=== PATIENT | female | born 1990 | race Two or more races ===

== ENCOUNTER 2017-07-16 05:55 | Emergency (ER) | payer OTHER ==
[~2017-07-16] VITALS: Ht 162.6 cm; Wt 89.6 kg
[2017-07-16] MEDS ORDERED: FAMOTIDINE 20 MG/2 ML ONE (06:26)
[2017-07-16] MEDS ORDERED: ONDANSETRON 2MG/ML, 2ML ONE (06:26)
[2017-07-16] MEDS ORDERED: BCP (06:27)
[2017-07-16] MEDS ORDERED: ONDANSETRON 2MG/ML, 2ML IVPush ONE (06:30)
[2017-07-16] MEDS ORDERED: SODIUM CHLORIDE 0.9% 1,000ML IVBOLUS ONE (06:30)
[2017-07-16] MEDS ORDERED: FAMOTIDINE 20 MG/2 ML IVP ONE (06:30)
[2017-07-16] MEDS ORDERED: SODIUM CHLORIDE FLUSH 10ML SYR IVF ONE (06:30)
[2017-07-16 06:45] LABS: HEMATOCRIT 46.2 % (34.6-47.8); HEMOGLOBIN 15.7 g/dL (11.7-16.4); WHITE BLOOD COUNT 14.4 x10^3/uL (3.4-10)
[2017-07-16 06:57] LABS: ASPARTATE AMINO TRANSFERASE 16 U/L (15-37); BLOOD UREA NITROGEN 14 mg/dL (7-18)
[2017-07-16 09:00] VITALS: BP 135/78
== END 2017-07-16 09:03 | disposition home or self-care (01) ==
LOC: ED 06:27
DX: K52.9 Noninfective gastroenteritis and colitis, unspecified (principal)
CPT/HCPCS: 36415; 76700; 80053; 81001; 83690; 84703; 85025; 96361; 96374; 96375; 99285; J2405; J7030; S0028

== ENCOUNTER 2019-12-31 06:31 | Emergency (ER) | payer BC, OTHER ==
[~2019-12-31] VITALS: Ht 162.6 cm; Wt 105.6 kg
[~2019-12-31 06:31] MED LIST: BCP
--- NOTE | 2019-12-31 07:23 | NUR ---
REGISTERED NURSE BONE MARROW TRANSPLANT: PT AMBULATORY WITH STEADY GAIT TO ROOM AT THIS TIME.
--- NOTE | 2019-12-31 07:36 | NUR ---
FIRST CONTACT WITH PT/ PT C/O LEFT FLANK PAIN WITH NAUSEA X2 HOURS. HX OF KIDNEY STONES. FEELS THE SAME. PCP [facility]. DENIES URINARY S/S. PT'S AOX4. RESPS EVEN AND UNLABORED. BP/SPO2 MONITORS IN PLACE. CALL LIGHT WITHIN REACH.
[2019-12-31] MEDS ORDERED: MORPHINE SULFATE 4 MG/ML, 1ML ONE (07:58)
[2019-12-31] MEDS ORDERED: ONDANSETRON 2MG/ML, 2ML ONE (07:58)
[2019-12-31] MEDS ORDERED: SODIUM CHLORIDE 0.9% 1,000ML IV ONE (08:00)
[2019-12-31] MEDS ORDERED: MORPHINE SULFATE 4 MG/ML, 1ML IVPush PRN (08:00)
[2019-12-31] MEDS ORDERED: SODIUM CHLORIDE FLUSH 10ML SYR IVF ONE (08:00)
[2019-12-31] MEDS ORDERED: ONDANSETRON 2MG/ML, 2ML IVPush ONE (08:00)
--- NOTE | 2019-12-31 08:10 | NUR ---
pt medicated per emar. pt tolerated well. ns infusing at this time.
--- NOTE | 2019-12-31 08:15 | NUR ---
PT AMB TO BR AND BACK TO ROOM WITH STEADY GAIT. URINE COLLECTED AND SENT.
[2019-12-31 08:23] LABS: BASOPHILS # (AUTO) 0.04 x10^3/uL (0-0.1); BASOPHILS % (AUTO) 1 % (0-1); EOSINOPHILS # (AUTO) 0.11 x10^3/uL (0-0.4); EOSINOPHILS % (AUTO) 1 % (1-7); LYMPHOCYTES # (AUTO) 1.89 x10^3/uL (1-3.4); LYMPHOCYTES % (AUTO) 24 % (22-44); MD NO; MEAN CORPUSCULAR HEMOGLOBIN 30.2 pg (27.0-34.8); MEAN CORPUSCULAR VOLUME 88.7 fL (80-100); MONOCYTES # (AUTO) 0.33 x10^3/uL (0.2-0.8); MONOCYTES % (AUTO) 4 % (2-9); NEUTROPHILS # (AUTO) 5.44 x10^3/uL (1.8-6.8); NEUTROPHILS % (AUTO) 70 % (42-75); PLATELET COUNT 237 x10^3/uL (130-400); RED BLOOD COUNT 4.82 x10^6/uL (3.82-5.3); RED CELL DISTRIBUTION WIDTH 12.8 % (9.6-15.2)
--- NOTE | 2019-12-31 08:28 | NUR ---
PT IN CT AT THIS TIME.
[2019-12-31 08:31] LABS: MICROSCOPIC NOT IND
--- NOTE | 2019-12-31 08:31 | NUR ---
PT BACK TO ROOM FROM CT AT THIS TIME.
[2019-12-31 08:33] LABS: CULTURE INDICATED? NO
[2019-12-31 08:34] LABS: ALBUMIN 3.6 g/dL (3.4-5.0); ANION GAP 4 mmol/L (5-15); CALCIUM 8.9 mg/dL (8.5-10.1); CHLORIDE 110 mmol/L (98-107); CREATININE 0.68 mg/dL (0.55-1.02)
--- NOTE | 2019-12-31 08:48 | NUR ---
PT AMB TO BR AND BACK TO ROOM WITH STEADY GAIT.
--- NOTE | 2019-12-31 09:29 | NUR ---
PT AMB TO BR AND BACK TO ROOM WITH STEADY GAIT.
--- NOTE | 2019-12-31 10:02 | NUR ---
edmd ok'd to give some water. water provided at this time per request.
[2019-12-31 10:43] VITALS: BP 136/73
--- NOTE | 2019-12-31 10:44 | NUR ---
Patient given discharge instructions and they have confirmed that they understand the instructions. Patient ambulatory with steady gait.
== END 2019-12-31 10:45 | disposition home or self-care (01) ==
LOC: ED 09:00
DX: R10.9 Unspecified abdominal pain (principal); R11.0 Nausea
CPT/HCPCS: 36415; 74176; 80048; 81003; 82040; 85025; 96374; 96375; 99285; J2270; J2405; J7030